=== PATIENT | female | born 1950 | race Caucasian/White ===

== ENCOUNTER 2016-12-11 15:24 | Emergency (ER) | payer MEDICARE, BC ==
[2016-12-11] MEDS ORDERED: ONDANSETRON HCL 4 MG/2 ML VIAL ONE (15:57)
[2016-12-11] MEDS ORDERED: ACETAMINOPHEN 325 MG TABLET PO ONE (16:27)
[2016-12-11 16:43] LABS: MONOCYTES# 0.6 X 10^3uL (0.2-1.0)
[2016-12-11 16:48] LABS: ALBUMIN 3.8 g/dL (3.5-5.0); ALKALINE PHOSPHATASE 76 U/L (38-126); ALT 43 U/L (9-52); AST 44 U/L (14-36); BILIRUBIN, DIRECT 0.8 mg/dL (0.0-0.4); BILIRUBIN, TOTAL 3.7 mg/dL (0.2-1.3); BLOOD UREA NITROGEN 9 mg/dL (7-17); CALCIUM 9.2 mg/dL (8.4-10.2); CHLORIDE 100 mmol/L (98-107); CREATININE 0.7 mg/dL (0.5-1.0); EST GLOMERULAR FILTRATION RATE > 60 mL/min; LIPASE 85 U/L (23-300); SODIUM 135 mmol/L (137-145); TOTAL PROTEIN 7.2 g/dL (6.3-8.2)
[2016-12-11 16:50] LABS: BASOPHILS 0.4 % (0.0-2.0); EOSINOPHILS 0.6 % (0.0-6.0); EOSINOPHILS# 0.1 X 10^3uL (0.0-0.4); GLUCOSE 201 mg/dL (70-100); HEMATOCRIT 42.7 % (36.0-48.0); HEMOGLOBIN 14.8 g/dL (12.0-16.0); LYMPHOCYTES 8.8 % (20.0-40.0); LYMPHOCYTES# 0.7 X 10^3uL (0.8-3.8); MEAN CELL VOLUME 86.2 fL (80.0-100.0); MEAN CORPUS. HGB CONCENTRATION 34.6 g/dL (32.0-36.0); MEAN CORPUSCULAR HEMOGLOBIN 29.8 pg (29.0-35.0); MONOCYTES 7.2 % (2.0-10.0); NEUTROPHILS# 7.1 X 10^3uL (2.6-6.7); PLATELET COUNT 101 X 10^3uL (130-440); RED BLOOD COUNT 4.95 X 10^6uL (4.20-6.10); RED CELL DISTRIBUTION WIDTH 12.5 % (11.5-14.5); WHITE BLOOD COUNT 8.5 X 10^3uL (3.9-10.7)
[2016-12-11] MEDS ORDERED: KETOROLAC TROMETHAMINE 30 MG/ML VIAL ONE (17:05)
--- NOTE | 2016-12-11 19:28 | ER NURSING DOCUMENTATION ---
Nurse's Notes [facility] Name:Macarena Keys Age:66 yrs Sex:Female :1950 Arrival Date:12/11/2016 Time:15:24 Bed1 Private MD: Diagnosis:Fever Presentation: 12/11 15:32 Notified ED Physician of patient's arrival and CC Denis Nielsen notified. sj 15:32 Acuity: STUART 3 sj 15:44 Presenting complaint: Patient states: Fever today of 103. Nausea and vomiting x5. sj Having right hip, right knee, and right ankle pain. 16:19 Transition of care: Home. sj 16:19 Method Of Arrival: Private Vehicle sj Triage Assessment: 16:29 General: Appears uncomfortable, Behavior is cooperative, drowsy, pleasant. Pain: sj Complains of pain in right ankle, right knee, right hip Pain currently is 8 out of 10 on a pain scale. Neuro: Level of Consciousness is awake, Oriented to person, place, time, event. Cardiovascular: Capillary refill < 3 seconds. Respiratory: Respiratory effort is even, unlabored, Respiratory pattern is regular. Derm: Skin is intact, Skin is dry, Skin is pale, Skin temperature is hot. Historical: - Home Meds: 1. Aspirin Oral 2 tabs at 1400 today 2. anastrozole 1 mg oral tab 1 tab once daily 3. cyclobenzaprine 10 mg oral tab prn 4. Allergy Medication oral as needed 5. Anti-Diarrheal (loperamide) 2 mg oral tab as needed 6. fluoxetine 20 mg oral cap 1 cap once daily 7. gabapentin 300 mg oral cap 1 cap as directed 8. glimepiride 4 mg oral tab 1 tab once daily 9. Vicodin ES Oral as needed for pain not to exceed 5 tablets in 24hrs 10. hydroxyzine HCl 25 mg oral tab 11. levothyroxine 25 mcg oral tab 1 tab once daily 12. Ativan 0.5 mg oral tab 13. metformin 1,000 mg oral tab 14. calcium carbonate 600 mg (1,500 mg) oral tab 15. Vitamin D Oral 16. Vitamin B-12 1,000 mcg oral tab 17. novofine 18. omeprazole 20 mg oral cpDR 19. simvastatin 40 mg oral tab - PMHx: DIABETES - NIDDM; hypercholesterolemia; GERD; HYPOTHYROIDISM; CIRRHOSIS; breast cancer (Unknown - 2009); - PSHx: LUMPECTOMY; CARPAL TUNNEL REPAIR; CHOLECYSECTOMY; - Tetanus: < 10 years. - Ebola Screening: : Patient negative for fever greater than or equal to 101.5 degrees Fahrenheit, and additional compatible Ebola Virus Disease symptoms. Patient denies exposure to infectious person. Patient denies travel to an Ebola-affected area in the 21 days before illness onset. No symptoms or risks identified at this time. . - Immunization history: Pneumococcal vaccine is up to date, Flu Vaccine < 1 year. - Social history: Smoking status: Patient states was never smoker of tobacco. Patient uses alcohol but reports only rare drinking. Screenin:32 Infectious Disease Risk None. Abuse screen: Denies threats or abuse. Denies injuries sj from another. Nutritional screening: On diabetic diet. Assessment: 18:55 Reassessment: Fever recurring. Unable to obtain urine specimen because dropped cup in sj toilet. Sent home with specimen cup.. 18:56 Respiratory: Respiratory effort is even, unlabored, Respiratory pattern is regular, sj Breath sounds are clear bilaterally. Derm: Skin is intact, Skin is dry, Skin is pale, Skin temperature is hot. Vital Signs: 15:42 BP 155 / 86; Pulse 111; Resp 16; Temp 103.0(O); Pulse Ox 89% on R/A; Weight 88.45 kg; sj Height 5 ft. 2 in. (157.48 cm); Pain 8/10; 17:10 BP 157 / 87; Pulse 111; Pulse Ox 95% on 2 lpm NC; sj 17:33 BP 152 / 70; Pulse 125; Resp 24; Temp 99.0; Pulse Ox 94% ; Pain 5/10; sj 18:13 BP 145 / 71; Pulse 115; Pulse Ox 95% on R/A; sj 19:26 Pulse 115; Temp 100.0; Pain 5/10; sj 15:42 Body Mass Index 35.67 (88.45 kg, 157.48 cm) ED Course: 15:25 Patient arrived in ED. em3 15:32 Nicol Maciel is Primary Nurse. sj 15:32 Triage completed. sj 15:41 Raoul Barrios MD is Attending Physician. jm 16:07 Port Xray Completed. hz 16:11 CHEST; SINGLE VIEW 73715 In Process Unspecified. EDMS 16:15 Inserted peripheral IV: 20 gauge in right forearm and blood collected. sj 16:15 First set of blood cultures drawn by nh. Oxygen Oxygen administration via nasal cannula sj @ 2L/min. 16:32 Valuables Given to family. Patient has correct armband on for positive identification. sj Bed in low position. Call light in reach. Side rails up X 1. 16:40 Pulse ox on. NIBP on. sj Administered Medications: 16:15 Drug: NS 0.9% 2000 ml; Route: IV; Rate: bolus; Site: right forearm; sj 17:08 Follow up: IV Status: Completed infusion; IV Intake: 1000ml sj 16:17 Drug: Zofran 4 mg; Route: IVP; Infused Over: 2 mins; Site: right forearm; sj 17:09 Follow up: Response: Nausea is decreased sj 16:30 Drug: Acetaminophen 975 mg; Route: PO; sj 17:54 Follow up: Response: Temperature is unchanged sj 17:00 Drug: Toradol 30 mg; Route: IVP; Site: right forearm; sj 17:54 Follow up: Response: Pain is decreased sj 17:54 Follow up: Response: Temperature is decreased sj 17:32 Drug: NS 0.9% 1000 ml; Route: IV; Rate: bolus; Site: right forearm; sj 18:57 Follow up: IV Status: Completed infusion; IV Intake: 1000ml sj Intake: 17:08 IV: 1000ml; Total: 1000ml. sj 18:57 IV: 1000ml; Total: 2000ml. Outcome: 18:37 Discharge ordered by . saw 18:54 Discharged to home ambulatory, with family. 18:54 Condition: good 18:54 Instructed on discharge instructions, follow up and referral plans. Incentive Spirometer medication usage, Demonstrated understanding of instructions, medications. 18:54 IV D/Rupesh 19:27 Patient left the ED. Signatures: Dispatcher [employer] EDMS Raoul Barrios MD MD jm Meiklejohn, Eric em3 Janzen, Sarah sj Zolnowski, Heather hz
--- NOTE | 2016-12-11 19:28 | ER PHYSICIAN DOCUMENTATION ---
Physician Documentation [facility] Name:Macarena Keys Age:66 yrs Sex:Female :1950 Arrival Date:12/11/2016 Time:15:24 Bed1 Private MD: Raoul Shah Disposition: 12/11/16 18:37 Discharged to Home/Self Care. Impression: Fever. - Condition is Good. - Discharge Instructions: FEBRILE ILLNESS, Uncertain Cause (Adult). - Medical Reconciliation form form. - Follow up: Emergency Department; When: 1 - 2 days; Reason: Continuance of care. - Problem is new. - Symptoms have improved. - Notes: Return your urine for us. HPI: 12/11 16:41 This 66 yrs old Female presents to ER via Private Vehicle with complaints of jm Fever. 16:41 The patient reports fever, that was measured at 103 degrees Fahrenheit. Onset: The jm symptom(s)/episode began/occurred today. Modifying factors: there are no obvious modifying factors. Associated signs and symptoms: Pertinent positives: headache, myalgias, sore throat, Pertinent negatives: abdominal pain, backache, chills, cough. Severity of symptoms: in the emergency department the symptoms are unchanged. The patient has not experienced similar symptoms in the past. The patient has not recently seen a physician. Daughter had confirmed strep last week. Pt does have some URI sx, but no cough. . Historical: - Home Meds: 1. Aspirin Oral 2 tabs at 1400 today 2. anastrozole 1 mg oral tab 1 tab once daily 3. cyclobenzaprine 10 mg oral tab prn 4. Allergy Medication oral as needed 5. Anti-Diarrheal (loperamide) 2 mg oral tab as needed 6. fluoxetine 20 mg oral cap 1 cap once daily 7. gabapentin 300 mg oral cap 1 cap as directed 8. glimepiride 4 mg oral tab 1 tab once daily 9. Vicodin ES Oral as needed for pain not to exceed 5 tablets in 24hrs 10. hydroxyzine HCl 25 mg oral tab 11. levothyroxine 25 mcg oral tab 1 tab once daily 12. Ativan 0.5 mg oral tab 13. metformin 1,000 mg oral tab 14. calcium carbonate 600 mg (1,500 mg) oral tab 15. Vitamin D Oral 16. Vitamin B-12 1,000 mcg oral tab 17. novofine 18. omeprazole 20 mg oral cpDR 19. simvastatin 40 mg oral tab - PMHx: DIABETES - NIDDM; hypercholesterolemia; GERD; HYPOTHYROIDISM; CIRRHOSIS; breast cancer (Unknown - 2010); - PSHx: LUMPECTOMY; CARPAL TUNNEL REPAIR; CHOLECYSECTOMY; - Tetanus: < 10 years. - Ebola Screening: : Patient negative for fever greater than or equal to 101.5 degrees Fahrenheit, and additional compatible Ebola Virus Disease symptoms. Patient denies exposure to infectious person. Patient denies travel to an Ebola-affected area in the 21 days before illness onset. No symptoms or risks identified at this time. . - Immunization history: Pneumococcal vaccine is up to date, Flu Vaccine < 1 year. - Social history: Smoking status: Patient states was never smoker of tobacco. Patient uses alcohol but reports only rare drinking. ROS: 16:46 Constitutional: Positive for body aches, fever. jm 16:46 ENT: Positive for sinus congestion, sore throat. 16:46 Neck: Negative for pain with movement, tenderness. 16:46 Cardiovascular: Negative for chest pain. 16:46 Respiratory: Negative for cough. 16:46 Abdomen/GI: Positive for vomiting, Negative for abdominal pain, nausea, diarrhea. 16:46 Back: Negative for pain at rest, pain with movement. 16:46 : Negative for urinary symptoms. 16:46 MS/extremity: Positive for tenderness, of the pelvis. 16:46 Skin: Negative for rash. 16:46 Neuro: Positive for headache, Negative for dizziness. 16:46 All other systems are negative. Exam: 16:50 Constitutional: The patient appears alert, awake, comfortable, obese. jm 16:50 Eyes: Periorbital structures: appear normal, Conjunctiva: normal. 16:50 ENT: Mouth: Oral mucosa: normal, Posterior pharynx: Uvula: normal, erythema, that is marked, exudate, that is mild. 16:50 Neck: Thyroid: no acute changes, Trachea: is midline with no obvious abnormalities. 16:50 Cardiovascular: Rate: tachycardic, Rhythm: regular. 16:50 Respiratory: the patient does not display signs of respiratory distress, Breath sounds: are normal. 16:50 Abdomen/GI: Bowel sounds: normal, Palpation: abdomen is soft and non-tender. 16:50 : CVA tenderness, is absent, Bladder: is normal. 16:50 Musculoskeletal/extremity: Circulation is intact in all extremities. Calves: are non-tender, have equal circumference. 16:50 Skin: Appearance: Color: pink, Temperature: warm, no rash present. 16:50 Neuro: Mentation: is normal, Memory: is normal. 16:50 Psych: Behavior/mood is pleasant, cooperative, Affect is calm. Vital Signs: 15:42 BP 155 / 86; Pulse 111; Resp 16; Temp 103.0(O); Pulse Ox 89% on R/A; Weight 88.45 kg; sj Height 5 ft. 2 in. (157.48 cm); Pain 8/10; 17:10 BP 157 / 87; Pulse 111; Pulse Ox 95% on 2 lpm NC; sj 17:33 BP 152 / 70; Pulse 125; Resp 24; Temp 99.0; Pulse Ox 94% ; Pain 5/10; sj 18:13 BP 145 / 71; Pulse 115; Pulse Ox 95% on R/A; sj 19:26 Pulse 115; Temp 100.0; Pain 5/10; sj 15:42 Body Mass Index 35.67 (88.45 kg, 157.48 cm) MDM: 15:28 Patient medically screened. 20:45 Differential diagnosis: viral Infection, bacterial infection, URI, UTI. Data reviewed: vital signs, nurses notes, lab test result(s), radiologic studies, and as a result, I will discharge patient. Test interpretation: by ED physician or midlevel provider: plain radiologic studies. Counseling: I had a detailed discussion with the patient and/or guardian regarding: the historical points, exam findings, and any diagnostic results supporting the discharge/admit diagnosis, lab results, radiology results, the need for outpatient follow up, with the patient's primary care provider. Medication response: The patient's symptoms have improved, Toradol markedly relieved the patient's pain, acetaminophen administration has lowered the patient's temperature. ED course: I could not get a UA on pt. We waited 2 hours for one after 2LNS. Pt finally had to go but dropped the specimen in the toilet and urinated around it. Pt felt much better and wished to leave. I told her that I do not have a specific dx except for a viral syndrome (fever, body aches, mild HOUSE). Pt will return to ER if things worsen and to drop off her UA. . 12/11 16:51 Order name: BASIC METABOLIC PANEL; Complete Time: 17:09 [facility] 12/11 16:51 Order name: HEPATIC PANEL; Complete Time: 17:09 [facility] 12/11 16:51 Order name: LIPASE; Complete Time: 17:09 [facility] 12/11 16:52 Order name: LACTATE; Complete Time: 16:52 [facility] 12/11 16:55 Order name: CBC AUTO DIF, MDIF/RMOR IF IND; Complete Time: 17:09 [facility] 12/11 16:56 Order name: RAPID STREP SCRN CUL IF NEG EDSC 12/12 09:47 Order name: BLOOD CULTURE [facility] 12/12 09:50 Order name: BLOOD CULTURE [facility] 12/12 17:23 Order name: THROAT FOR BETA STREP [facility] 12/11 16:11 Order name: CHEST; SINGLE VIEW [id number] [facility] 12/12 09:11 Order name: CHEST; SINGLE [place]IEW [id number] [facility] 12/11 15:54 Order name: I & O; Complete Time: 16:36 12/11 15:54 Order name: NPO; Complete Time: 16:36 12/11 15:54 Order name: Oxygen; Complete Time: 16:36 12/11 15:54 Order name: Place Patient On Monitor; Complete Time: 16:36 12/11 15:54 Order name: Pulse Ox Continuous; Complete Time: 16:36 12/11 17:29 Order name: PO Challenge; Complete Time: 17:33 Dispensed Medications: 16:15 Drug: NS 0.9% 2000 ml; Route: IV; Rate: bolus; Site: right forearm; sj 17:08 Follow up: IV Status: Completed infusion; IV Intake: 1000ml sj 16:17 Drug: Zofran 4 mg; Route: IVP; Infused Over: 2 mins; Site: right forearm; sj 17:09 Follow up: Response: Nausea is decreased sj 16:30 Drug: Acetaminophen 975 mg; Route: PO; sj 17:54 Follow up: Response: Temperature is unchanged sj 17:00 Drug: Toradol 30 mg; Route: IVP; Site: right forearm; sj 17:54 Follow up: Response: Pain is decreased sj 17:54 Follow up: Response: Temperature is decreased sj 17:32 Drug: NS 0.9% 1000 ml; Route: IV; Rate: bolus; Site: right forearm; sj 18:57 Follow up: IV Status: Completed infusion; IV Intake: 1000ml Signatures: Raoul Barrios MD MD jm Janzen, Sarah sj
--- NOTE | 2016-12-12 09:10 | RADIOLOGY REPORT ---
HISTORY: Fever. COMPARISON: None. FINDINGS: 1 view of the chest was performed. The lungs are normally inflated. There is patchy left basilar airspace opacification, which may refle ct subsegmental atelectasis or pneumonia. The right lung is clear. There is no evidence of pulmonary edema. There is evidence of pleural effusion or pneumothorax. The heart is not enlarged. The bones appear unremarkable IMPRESSION: Patchy left basilar airspace opacification may reflect subsegmental atelectasis or pneumonia. The ext ent of the abnormality would be more fully characterized with PA and lateral radiographs. Final Electronic Signature: This report was electronically signed by Erlin Nash MD on 12/13/19 17 9:07 AM. [email or web address] /
== END 2016-12-11 19:28 | disposition home or self-care (01) ==
LOC: ER 15:24
DX: R50.9 Fever, unspecified (principal); R11.2 Nausea with vomiting, unspecified; M79.1 Myalgia; J02.0 Streptococcal pharyngitis; R51 Headache; E11.65 Type 2 diabetes mellitus with hyperglycemia; Z79.82 Long term (current) use of aspirin; Z79.899 Other long term (current) drug therapy
CPT/HCPCS: 36415; 71010; 80048; 80076; 83605; 83690; 85025; 86403; 87040; 87081; 87186; 87449; 87880; 96361; 96374; 96375; 99284; 99285; J1885; J2405

== ENCOUNTER 2016-12-12 06:15 | Inpatient (IN) | payer MEDICARE, BC ==
[2016-12-12 06:59] LABS: URINE MUCUS NONE SEEN (Up to 25%)
[2016-12-12 07:11] LABS: ALBUMIN 3.1 g/dL (3.5-5.0); ALKALINE PHOSPHATASE 55 U/L (38-126); ALT 39 U/L (9-52); AST 44 U/L (14-36); BILIRUBIN, DIRECT 0.9 mg/dL (0.0-0.4); BILIRUBIN, TOTAL 3.4 mg/dL (0.2-1.3); BLOOD UREA NITROGEN 10 mg/dL (7-17); CALCIUM 8.5 mg/dL (8.4-10.2); CHLORIDE 103 mmol/L (98-107); CREATININE 0.7 mg/dL (0.5-1.0); EST GLOMERULAR FILTRATION RATE > 60 mL/min; LIPASE 48 U/L (23-300); POTASSIUM 3.7 mmol/L (3.5-5.1); SODIUM 135 mmol/L (137-145); TOTAL PROTEIN 6.1 g/dL (6.3-8.2)
[2016-12-12 07:14] LABS: GLUCOSE 276 mg/dL (70-100)
[2016-12-12] MEDS ORDERED: NORMAL SALINE 500 ML IV ONE (07:22)
[2016-12-12] MEDS ORDERED: VANCOMYCIN HCL 1,000 MG/20 ML VIAL ONE (07:22)
[2016-12-12 07:23] LABS: HEMATOCRIT 37.9 % (36.0-48.0); MEAN CELL VOLUME 86.5 fL (80.0-100.0); MEAN CORPUS. HGB CONCENTRATION 34.3 g/dL (32.0-36.0); MEAN CORPUSCULAR HEMOGLOBIN 29.7 pg (29.0-35.0); MEAN PLATELET VOLUME 8.4 fL (7.4-10.4); PLATELET COUNT 93 X 10^3uL (130-440); RED BLOOD COUNT 4.38 X 10^6uL (4.20-6.10); RED CELL DISTRIBUTION WIDTH 12.6 % (11.5-14.5); WHITE BLOOD COUNT 6.1 X 10^3uL (3.9-10.7)
[2016-12-12] MEDS ORDERED: WATER FOR INJECTION 10 ML ONE (07:23)
[2016-12-12 07:24] LABS: TOXIC GRANULATION PRESENT
[2016-12-12 07:25] LABS: BAND% (Manual) 21 % (0.0-1.0); LYMPHOCYTE % (Manual) 12 % (20.0-40.0); MONOCYTE % (Manual) 5 % (2.0-10.0); NEUTROPHIL % (Manual) 62 % (54.0-75.0)
[2016-12-12 07:26] LABS: PLATELET ESTIMATE DECREASED
[2016-12-12] MEDS ORDERED: KETOROLAC TROMETHAMINE 30 MG/ML VIAL ONE (07:54)
[2016-12-12 08:13] LABS: URINE APPEARANCE CLEAR; URINE BACTERIA NONE SEEN (<10/hpf); URINE BILIRUBIN NEGATIVE (NEGATIVE); URINE BLOOD TRACE (NEGATIVE); URINE COLOR YELLOW; URINE GLUCOSE NORMAL (NEGATIVE); URINE KETONE NEGATIVE (NEGATIVE); URINE NITRITE NEGATIVE (NEGATIVE); URINE PH 5.5 (5-7); URINE PROTEIN NEGATIVE (NEG - TRACE); URINE RBC 0-5/hpf (0-5/hpf); URINE SPECIFIC GRAVITY < or = 1.005 (0.001-1.035); URINE SQUAMOUS EPITHELIAL CELL 0-5/hpf (<= 15/hpf); URINE UROBILINOGEN NORMAL (NEG-1mg/dL); URINE WBC 0-4/hpf (0-4/hpf)
[2016-12-12 08:16] LABS: URINE LEUKOCYTE ESTERASE TRACE (NEGATIVE)
[2016-12-12] MEDS ORDERED: ZOLPIDEM TARTRATE 5 MG TABLET PO PRN (09:05)
[2016-12-12] MEDS ORDERED: MAG-AL PLUS XS SUSP 30 ML UDC PO PRN (09:05)
[2016-12-12] MEDS ORDERED: HOME MEDICATION LIST NEEDED 1 EA EACH MC ONE (09:05)
[2016-12-12] MEDS ORDERED: POLYETHYLENE GLYCOL 3350 17 GM POWD.PACK PO PRN (09:05)
--- NOTE | 2016-12-12 09:09 | ER NURSING DOCUMENTATION ---
Nurse's Notes [facility] Name:Macarena Keys Age:66 yrs Sex:Female :1950 Arrival Date:12/12/2016 Time:06:15 Bed1 Private MD: Diagnosis:Sepsis;Dehydration;Septicemia Streptococcal Presentation: 12/12 06:44 Presenting complaint: Patient states: Seen yesterday for fever and URI. States not 4 getting better and now has " rash on forehead ". Transition of care: Home. Notified ED Physician of Denis Nielsen notified. 06:44 Method [facility] 06:44 Acuity: [facility] Triage Assessment: 06:55 General: Appears distressed, Behavior is cooperative. Pain: Complains of pain in [facility] forehead, right christianity, left christianity, right jaw and left jaw. EENT: No deficits noted. Neuro: No deficits noted. Cardiovascular: Chest pain is denied. Respiratory: Airway is patent Breath sounds are diminished bilaterally. Reports shortness of breath Currently has URI. GI: No deficits noted. : No deficits noted. Derm: Rash noted that is on forehead, right christianity and left christianity. Musculoskeletal: No deficits noted. Historical: - Allergies: Tape; - Home Meds: 1. Aspirin Oral 2 tabs at 1400 today 2. anastrozole 1 mg oral tab 1 tab once daily 3. cyclobenzaprine 10 mg oral tab prn 4. Allergy Medication oral as needed 5. Anti-Diarrheal (loperamide) 2 mg oral tab as needed 6. fluoxetine 20 mg oral cap 1 cap once daily 7. gabapentin 300 mg oral cap 1 cap as directed 8. glimepiride 4 mg oral tab 1 tab once daily 9. Vicodin ES Oral as needed for pain not to exceed 5 tablets in 24hrs 10. hydroxyzine HCl 25 mg oral tab 11. levothyroxine 25 mcg oral tab 1 tab once daily 12. Ativan 0.5 mg oral tab 13. metformin 1,000 mg oral tab 14. calcium carbonate 600 mg (1,500 mg) oral tab 15. Vitamin D Oral 16. Vitamin B-12 1,000 mcg oral tab 17. novofine 18. omeprazole 20 mg oral cpDR 19. simvastatin 40 mg oral tab - PMHx: DIABETES - NIDDM; GERD; HYPOTHYROIDISM; CIRRHOSIS; hypercholesterolemia; - PSHx: LUMPECTOMY; CARPAL TUNNEL REPAIR; CHOLECYSECTOMY; - Tetanus: < 10 years. - Ebola Screening: : No symptoms or risks identified at this time. . - Immunization history: Flu Vaccine < 1 year. - Social history: Smoking status: Patient states was never smoker of tobacco. Screenin:27 Infectious Disease Risk None. Abuse screen: Denies injuries from another. Nutritional mk4 screening: No deficits noted. Assessment: 07:26 See Triage Assessment done by same RN. mk4 08:42 Cardiovascular: Rhythm is sinus rhythm. cb 08:45 Respiratory: Respiratory effort is even, unlabored. cb Vital Signs: 07:15 BP 153 / 76; Pulse 89; Resp 16; Temp 100.7; Pulse Ox 88% on R/A; Weight 70.31 kg; mk4 Height 5 ft. 1 in. (154.94 cm); Pain 8/10; 07:31 Pain 8/10; cb 07:45 Temp 98.7(O); cb 08:35 BP 115 / 52 (auto/); cb 08:37 Pulse 95 MON; Resp 26; Pulse Ox 96% ; cb 08:57 Pulse 86 MON; Resp 18; Pulse Ox 96% ; cb 08:57 BP 126 / 64 (auto/); cb 08:57 BP 126 / 64; Pulse 93; Resp 22; Pulse Ox 97% 2 lpm ; cb 07:15 Body Mass Index 29.29 (70.31 kg, 154.94 cm) mk4 ED Course: 06:16 Patient arrived in ED. ma1 06:42 Raoul Barrios MD is Attending Physician. jm 06:43 Silva Thompson is Primary Nurse. mk4 06:47 Triage completed. mk4 06:50 Inserted peripheral IV: saline lock: 20 gauge in left antecubital area and blood jt collected. 07:15 Diet: Patient given water. cb 07:20 Arm band placed on Bed in low position Call Light in Reach Side rails up x2. Family mk4 accompanied patient. Labs ordered per protocol. Drawn by ED staff. Urine obtained. 07:27 Valuables Remains with patient. Pulse Ox - RN Monitoring Only NIBP On - RN Monitoring mk4 Only. Door closed. Noise minimized. PO fluids given. Verbal reassurance given. Warm blanket given. Pillow given. 07:43 Livia Law MD is Admitting Physician. jm 08:45 Assisted to bathroom. cb Administered Medications: 07:19 Drug: NS 0.9% 2000 ml; Volume: 1000 ml; Route: IV; Rate: bolus; Infused Over: 45 mins; mk4 Site: right antecubital; Delivery: [place]; 09:32 Follow up: IV Status: Infusion continued upon admission; IV Intake: 1500ml cb 07:19 Drug: vancomycin 1 grams; Volume: 250 ml; Route: IVPB; Rate: 125 ml/hr; Infused Over: 2 mk4 hrs; Site: left antecubital; Delivery: Pump; 09:32 Follow up: IV Status: Infusion continued upon admission; IV Intake: 250ml cb 07:45 Drug: Toradol 30 mg; Route: IVP; Rate: 30 bolus; Infused Over: 2 mins; Site: left mk4 antecubital; :33 Follow up: Response: No adverse reaction cb Intake: 08:45 PO: 50ml (Water); IV: 1750ml; Total: 1800ml. cb 09:32 IV: 1500ml; Total: 3300ml. cb 09:32 IV: 250ml; Total: 3550ml. cb Output: 08:45 Urine: 550ml (Voided); Total: 550ml. cb Outcome: 07:44 Decision to Admit by Provider. 09:05 Admitted to Med/surg accompanied by nurse, family with patient, via stretcher, with cb oxygen, with chart. 09:05 Condition: stable 09:05 Report given to FRANCO Grace 09:05 Discharge instructions given to patient, Instructed on need to admit Demonstrated understanding of instructions. 09:08 Patient left the ED. cb Signatures: Megan Douglass, RN RN Raoul Engel MD MD jm King, Silva 4 Cyndie Worthy Melissa [facility]
--- NOTE | 2016-12-12 09:09 | ER PHYSICIAN DOCUMENTATION ---
Physician Documentation [facility] Name:Macarena Keys Age:66 yrs Sex:Female :1950 Arrival Date:12/12/2016 Time:06:15 Bed1 Private MD: Raoul Shah Disposition: 12/12/16 07:44 Admit ordered for Livia Law. Preliminary diagnosis are Sepsis, Dehydration, Septicemia Streptococcal. - Bed requested for Medical/Surgical. - Condition is Fair. - Problem is an ongoing problem. - Symptoms have worsened. 23 HR OBS Yes HPI: 12/12 07:04 This 66 yrs old Female presents to ER via Walk In with complaints of Fever, jm Rash - FOREHEAD, Ear Pain, Sore Throat. 07:04 The patient reports fever, that was measured at 102 degrees Fahrenheit. Onset: The jm symptom(s)/episode began/occurred yesterday, and became persistent today. Modifying factors: there are no obvious modifying factors. Associated signs and symptoms: Pertinent positives: URI sx (sore throat, mild cough, mild HOUSE). . Severity of symptoms: in the emergency department the symptoms are unchanged. The patient has not experienced similar symptoms in the past. The patient has been recently seen at the [facility] Emergency Department, yesterday, for similar complaints labs were performed, X-rays were performed, was given IV fluids, the patient was told to return for a recheck. Pt came back as her fever continued and now she has a rash. she was walking in the door, lab came to tell us that her blood cultures from yesterday were, "very positive".. Historical: - Allergies: Tape; - Home Meds: 1. Aspirin Oral 2 tabs at 1400 today 2. anastrozole 1 mg oral tab 1 tab once daily 3. cyclobenzaprine 10 mg oral tab prn 4. Allergy Medication oral as needed 5. Anti-Diarrheal (loperamide) 2 mg oral tab as needed 6. fluoxetine 20 mg oral cap 1 cap once daily 7. gabapentin 300 mg oral cap 1 cap as directed 8. glimepiride 4 mg oral tab 1 tab once daily 9. Vicodin ES Oral as needed for pain not to exceed 5 tablets in 24hrs 10. hydroxyzine HCl 25 mg oral tab 11. levothyroxine 25 mcg oral tab 1 tab once daily 12. Ativan 0.5 mg oral tab 13. metformin 1,000 mg oral tab 14. calcium carbonate 600 mg (1,500 mg) oral tab 15. Vitamin D Oral 16. Vitamin B-12 1,000 mcg oral tab 17. novofine 18. omeprazole 20 mg oral cpDR 19. simvastatin 40 mg oral tab - PMHx: DIABETES - NIDDM; GERD; HYPOTHYROIDISM; CIRRHOSIS; hypercholesterolemia; - PSHx: LUMPECTOMY; CARPAL TUNNEL REPAIR; CHOLECYSECTOMY; - Tetanus: < 10 years. - Ebola Screening: : No symptoms or risks identified at this time. . - Immunization history: Flu Vaccine < 1 year. - Social history: Smoking status: Patient states was never smoker of tobacco. ROS: 07:18 Constitutional: Positive for body aches, chills, fatigue, fever. jm 07:18 ENT: Positive for rhinorrhea, sinus congestion, sore throat, Negative for 07:18 Neck: Positive for swollen nodes, Negative for pain with movement, pain at rest. 07:18 Cardiovascular: Negative for chest pain, palpitations. 07:18 Respiratory: Negative for cough, shortness of breath. 07:18 Abdomen/GI: Negative for abdominal pain, nausea, vomiting, diarrhea. 07:18 Back: Negative for injury or acute deformity. 07:18 MS/extremity: Negative for rash, swelling. 07:18 Skin: Positive for rash. 07:18 Neuro: Negative for dizziness, headache, near syncope. 07:18 Psych: Negative for drug dependence, alcohol dependence. 07:18 All other systems are negative. Exam: 07:19 Constitutional: The patient appears in no acute distress, alert, awake, comfortable, jm obese. 07:19 Head/face: Noted is rash, looks like cellulitis. . 07:19 Eyes: Periorbital structures: appear normal, Extraocular movements: intact throughout. 07:19 Neck: Thyroid: appears normal, ROM/movement: is normal. 07:19 Cardiovascular: Rate: normal, Rhythm: regular. 07:19 Respiratory: Respirations: normal, Breath sounds: are normal. 07:19 Abdomen/GI: Bowel sounds: normal, Palpation: abdomen is soft and non-tender. 07:19 Musculoskeletal/extremity: ROM: intact in all extremities, Circulation is intact in all extremities. 07:19 Skin: Appearance: Color: pink, cellulitis, that is severe, well demarcated, entire foread to the back of her scalp. , rash a severe rash is noted. 07:19 Neuro: Mentation: is normal, Memory: is normal. 07:19 Psych: Behavior/mood is pleasant, cooperative, Affect is calm. Vital Signs: 07:15 BP 153 / 76; Pulse 89; Resp 16; Temp 100.7; Pulse Ox 88% on R/A; Weight 70.31 kg; mk4 Height 5 ft. 1 in. (154.94 cm); Pain 8/10; 07:31 Pain 8/10; cb 07:45 Temp 98.7(O); cb 08:35 BP 115 / 52 (auto/); cb 08:37 Pulse 95 MON; Resp 26; Pulse Ox 96% ; cb 08:57 Pulse 86 MON; Resp 18; Pulse Ox 96% ; cb 08:57 BP 126 / 64 (auto/); cb 08:57 BP 126 / 64; Pulse 93; Resp 22; Pulse Ox 97% 2 lpm ; cb 07:15 Body Mass Index 29.29 (70.31 kg, 154.94 cm) mk4 MDM: 06:42 Patient medically screened. 12/12 07:15 Order name: BASIC METABOLIC PANEL; Complete Time: 07:42 EDMS 12/12 07:15 Order name: HEPATIC PANEL; Complete Time: 07:42 EDMS 12/12 07:15 Order name: LIPASE; Complete Time: 07:42 EDMS 12/12 07:17 Order name: LACTATE; Complete Time: 07:22 EDMS 12/12 07:22 Interpretation: Abnormal: LACTATE 4.0. 12/12 07:24 Order name: CBC W/ MANUAL DIFFERENTIAL; Complete Time: 07:29 EDMS 12/12 08:14 Order name: UA W/ MICRO -CULTURE IF IND; Complete Time: 08:24 EDMS 12/13 06:48 Order name: BASIC METABOLIC PANEL EDWY 12/13 06:48 Order name: HEPATIC PANEL EDWY 12/13 07:29 Order name: CBC W/ MANUAL DIFFERENTIAL EDMS 12/13 07:54 Order name: URINE CULTURE EDMS 12/13 21:49 Order name: VANCOMYCIN TROUGH EDMS 12/12 06:44 Order name: I & O; Complete Time: 07:46 12/12 06:44 Order name: NPO; Complete Time: 07:46 12/12 06:44 Order name: Oxygen; Complete Time: 07:46 12/12 06:44 Order name: Place Patient On Monitor; Complete Time: 12/12 06:44 Order name: Pulse Ox Continuous; Complete Time: : Dispensed Medications: 07:19 Drug: NS 0.9% 2000 ml; Volume: 1000 ml; Route: IV; Rate: bolus; Infused Over: 45 mins; mk4 Site: right antecubital; Delivery: [place] Tubing; :32 Follow up: IV Status: Infusion continued upon admission; IV Intake: 1500ml cb 07:19 Drug: vancomycin 1 grams; Volume: 250 ml; Route: IVPB; Rate: 125 ml/hr; Infused Over: 2 mk4 hrs; Site: left antecubital; Delivery: Pump; :32 Follow up: IV Status: Infusion continued upon admission; IV Intake: 250ml cb 07:45 Drug: Toradol 30 mg; Route: IVP; Rate: 30 bolus; Infused Over: 2 mins; Site: left mk4 antecubital; 09:33 Follow up: Response: No adverse reaction cb Signatures: Megan Douglass, RN RN Raoul Engel MD MD jm King, [facility]
[2016-12-12] MEDS ORDERED: DEXTROSE 50% WATER 25 GM/50 ML SYR IV PRN (09:10)
[2016-12-12] MEDS ORDERED: VANCOMYCIN HCL 1,000 MG in NORMAL SALINE ADDVANTAGE 250 ML IV SCH (10:00)
[2016-12-12] MEDS ORDERED: LORazepam 0.5 MG TABLET PO PRN (10:26)
[2016-12-12] MEDS: HYDROcodone/APAP 5/325 MG 1 TAB TABLET PO PRN ×2 (11:37→14:29)
[2016-12-12] MEDS: metFORMIN 500 MG TABLET PO SCH ×2 (11:38→20:37)
[2016-12-12] MEDS: FLUOXETINE HCL 20 MG CAPSULE PO SCH (11:38)
[2016-12-12] MEDS: CHOLECALCIFEROL 1,000 UNIT CAPSULE PO SCH (11:38)
[2016-12-12] MEDS: GABAPENTIN 300 MG CAPSULE PO SCH ×2 (11:38→20:36)
[2016-12-12] MEDS: CYANOCOBALAMIN 1,000 MCG TABLET PO SCH (11:38)
[2016-12-12] MEDS: INSULIN LISPRO 100 UNIT/ML ML SUBCUT SCH ×3 (11:39→20:55)
[2016-12-12] MEDS: [UNRECOGNIZED DRUG - REMARK] PO SCH (11:40)
[2016-12-12] MEDS: NORMAL SALINE 1,000 ML IV SCH (11:41)
[2016-12-12] MEDS: [UNRECOGNIZED DRUG - REMARK] PO SCH ×2 (13:23→18:51)
[2016-12-12] MEDS: CYCLOBENZAPRINE HCL 10 MG TABLET PO PRN (13:24)
[2016-12-12] MEDS: IBUPROFEN 600 MG TABLET PO PRN (13:24)
[2016-12-12] MEDS: VANCOMYCIN HCL 1,000 MG in NORMAL SALINE ADDVANTAGE 250 ML IV SCH (20:35)
--- NOTE | 2016-12-12 21:06 | HISTORY & PHYSICAL ---
DATE OF ADMISSION: 12/12/16 ATTENDING PHYSICIAN: Livia Law MD HISTORY OF PRESENT ILLNESS: This 66-year-old lady visiting from [place] presented to the Emergency Room yesterday with a significant fever and elevated lactic acid but no source found. After some IV fluids and monitoring in the Emergency Room, she felt vastly improved and really preferred to be discharged and bring back a urine for culture later. However, she had 4/4 positive blood cultures this morning and coincidentally returned to the Emergency Room for recurrent fever. She has now developed a rather impressive rash covering the front of her scalp involving the right ear and coming down just over the eyebrows in front. Vancomycin was started in the Emergency Room. Vital signs are stable, she will be admitted for treatment of strep cellulitis. PAST MEDICAL HISTORY 1. Diabetes. 2. Hypertension. 3. Hyperlipidemia. 4. 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 5. Left breast cancer. PAST SURGICAL HISTORY (none of these recent). 1. Lumpectomy, left breast. 2. Carpal tunnel surgery, right wrist. 3. Removal of gallbladder. MEDICATIONS Aspirin. Anastrozole 1 mg tab daily. Cyclobenzaprine 10 mg p.o. q.6 hours PRN. Odyt-pjj-pjklinw allergy medication. Loperamide 2 mg p.o. t.i.d. PRN. Fluoxetine 20 mg 1 p.o. daily. Gabapentin 300 mg p.o. dosing interval not yet clarified. Glimepiride 4 mg 1 p.o. daily. [place] unknown dosing PRN. Hydroxyzine 25 mg p.o. at h.s. PRN. Levothyroxine 25 mcg 1 p.o. daily. Ativan 0.5 mg p.o. t.i.d. PRN. Metformin 1000 mg dosing interval not yet clarified. Calcium carbonate daily. Vitamin D daily. Vitamin B12 1000 mcg p.o. daily. Insulin dosing yet to be clarified. Omeprazole 20 mg p.o. daily. Simvastatin 40 mg p.o. daily. ALLERGIES: No known drug allergies. SOCIAL HISTORY: She does not smoke. She does not drink alcohol. She is traveling with her who is on hemodialysis and will be traveling to [place] for that tomorrow. They plan to stay in [place] for a month. REVIEW OF SYSTEMS: Patient has complained of fever, headache, sore throat, muscle aches in the last few days, and there is a known exposure to strep last week. PHYSICAL EXAMINATION VITAL SIGNS: 101 116/80 75 92% on 2L O2 GENERAL: Pleasant, very hard of hearing lady in no acute distress in the Emergency Room. HEENT: Her right ear is quite edematous such that the auditory canal is obstructed at this time. The erythema and swelling spreads across the anterior scalp and down her forehead, just barely sparing the eyebrows bilaterally. The eyes are not involved. There is no significant adenopathy. CARDIAC: Distant S1, S2. CHEST: Clear to auscultation. ABDOMEN: Obese, soft and nontender at this time. EXTREMITIES: Without edema. There are no skin changes or rashes noted in the lower extremities. LABORATORY DATA: From the Emergency Room include a sodium of 135, carbon dioxide of 21, glucose of 276, lactic acid of 4 (it was 3 yesterday), total bilirubin of 3.4, direct bilirubin 0.9, AST 44, ALT 39, alkaline phosphatase normal. Total protein is very mildly depressed. A CBC yesterday was fairly unremarkable, and today in fact she does not have a white count but there is a significant bandemia of 21% with 12% lymphocytes. Her urine does not look suspicious for infection. A group A rapid strep done yesterday was unremarkable , but apparently the lab is seeing some group A strep on her throat culture which was initiated at the same time. It looks like a flu test was initiated last evening but the results are not easily visible. It is unlikely to be positive since we have a good explanation for all of her troubles. ASSESSMENT AND PLAN 1. Streptococcal cellulitis of the scalp and right ear. Vancomycin was initiated in the Emergency Room and will be continued. The rash will be closely monitored as well as laboratory data to assure that this process is stabilizing and resolving. It is quite concerning that she had 4/4 positive blood cultures, but clinically she appears to be doing well with very acceptable vital signs in the Emergency Room. 2. Chronic medical issues. Her routine dosing of medication for blood pressure, lipids and especially diabetes will be discerned this morning and orders put in the chart. For now, there will be sliding scale insulin. MTDD
[2016-12-13] MEDS: NORMAL SALINE 1,000 ML IV SCH (02:55)
[2016-12-13] MEDS: IBUPROFEN 600 MG TABLET PO PRN ×2 (03:03→19:07)
[2016-12-13] MEDS ORDERED: NORMAL SALINE MINI-BAG+ 100 ML IV ONE (04:50)
[2016-12-13] MEDS: PANTOPRAZOLE 40 MG TABLET PO SCH (06:02)
[2016-12-13] MEDS: LEVOTHYROXINE 25 MCG TABLET PO SCH (06:02)
[2016-12-13 06:36] LABS: ALBUMIN 2.7 g/dL (3.5-5.0); ALKALINE PHOSPHATASE 59 U/L (38-126); ALT 51 U/L (9-52); AST 47 U/L (14-36); BILIRUBIN, DIRECT 1.2 mg/dL (0.0-0.4); BILIRUBIN, TOTAL 2.8 mg/dL (0.2-1.3); BLOOD UREA NITROGEN 9 mg/dL (7-17); CALCIUM 8.4 mg/dL (8.4-10.2); CHLORIDE 109 mmol/L (98-107); CREATININE 0.6 mg/dL (0.5-1.0); EST GLOMERULAR FILTRATION RATE > 60 mL/min; GLUCOSE 67 mg/dL (70-100); POTASSIUM 3.8 mmol/L (3.5-5.1); SODIUM 142 mmol/L (137-145); TOTAL PROTEIN 5.8 g/dL (6.3-8.2)
[2016-12-13 07:28] LABS: HEMATOCRIT 38.3 % (36.0-48.0); HEMOGLOBIN 12.4 g/dL (12.0-16.0); MEAN CELL VOLUME 86.7 fL (80.0-100.0); MEAN CORPUS. HGB CONCENTRATION 32.3 g/dL (32.0-36.0); MEAN PLATELET VOLUME 8.7 fL (7.4-10.4); PLATELET COUNT 81 X 10^3uL (130-440); RED BLOOD COUNT 4.42 X 10^6uL (4.20-6.10); RED CELL DISTRIBUTION WIDTH 12.9 % (11.5-14.5)
[2016-12-13 07:29] LABS: BAND% (Manual) 24 % (0.0-1.0); EOSINOPHIL % (Manual) 4 % (0.0-6.0); LYMPHOCYTE % (Manual) 9 % (20.0-40.0); MONOCYTE % (Manual) 6 % (2.0-10.0); NEUTROPHIL % (Manual) 57 % (54.0-75.0); PLATELET ESTIMATE DECREASED
[2016-12-13 07:30] LABS: WHITE BLOOD COUNT 9.5 X 10^3uL (3.9-10.7)
[2016-12-13] MEDS: INSULIN LISPRO 100 UNIT/ML ML SUBCUT SCH ×4 (07:30→21:07)
[2016-12-13] MEDS: VANCOMYCIN HCL 1,000 MG in NORMAL SALINE ADDVANTAGE 250 ML IV SCH ×2 (08:02→22:00)
[2016-12-13] MEDS: CYANOCOBALAMIN 1,000 MCG TABLET PO SCH (08:03)
[2016-12-13] MEDS: CHOLECALCIFEROL 1,000 UNIT CAPSULE PO SCH (08:03)
[2016-12-13] MEDS: metFORMIN 500 MG TABLET PO SCH ×2 (08:03→20:01)
[2016-12-13] MEDS: HYDROcodone/APAP 5/325 MG 1 TAB TABLET PO PRN ×3 (08:03→21:21)
[2016-12-13] MEDS: GABAPENTIN 300 MG CAPSULE PO SCH ×3 (08:03→20:01)
[2016-12-13] MEDS: FLUOXETINE HCL 20 MG CAPSULE PO SCH (08:03)
[2016-12-13] MEDS: CYCLOBENZAPRINE HCL 10 MG TABLET PO PRN ×2 (08:08→20:02)
[2016-12-13] MEDS: [UNRECOGNIZED DRUG - REMARK] PO SCH (09:42)
[2016-12-13] MEDS: [UNRECOGNIZED DRUG - REMARK] PO SCH (09:42)
--- NOTE | 2016-12-13 11:54 | PROGRESS NOTE: IM APSO ---
Assessment and Plan - Date of Encounter Date of Encounter: 12/13/16 (1) Sepsis Status: Acute Assessment and plan: on Vanco, culture P, but suspected strep A, throat swab pos and she was exposed last week. VSS, labs stable, pt looks much improved in terms of the cellulitis. Plan another day on IV abx due to seriousness of presentation and switch to PO. Current Visit: Yes (2) Erysipelas Status: Acute Assessment and plan: As above Current Visit: Yes (3) Diabetes mellitus Status: Chronic Assessment and plan: On routine medications, doing well. Current Visit: Yes (4) Cirrhosis of liver Status: Chronic Current Visit: Yes - Time Spent With Patient Total time spent with greater than 50% in coordination of care (as documented) at patient's floor/unit and/or counseling patient: Estimated anticipated discharge: tomorrow IM: PN Subjective General: pain (scalp, improved) Respiratory: no cough, no SOB Integumentary: rashes IM: PN Objective Exam - I&O/Vital Signs I&O: Intake & Output 12/12/16 12/13/16 12/13/16 21:59 05:59 13:59 Intake Total 2695 1045 Output Total 700 400 Balance 1994 64 Weight 91.5 kg Intake: IV 1475 925 Left Antecubital 1475 925 Oral 1220 120 Output: Urine 700 400 Other: Urine Appearance Clear Clear Urine Color Straw Yellow Stool Size Moderate Stool Characteristics Brown Voiding Method Toilet Toilet # Voids 1 # Bowel Movements 1 Vital Signs: Last Vital Signs Temp 37.6 C 12/13/16 11:00 Pulse 97 H 12/13/16 11:00 Resp 16 12/13/16 11:00 BP 93/68 12/13/16 11:00 Pulse Ox 94 12/13/16 11:00 Oxygen Flow Rate 2 Oxygen Delivery Method Nasal Cannula - Constitutional General appearance: Present: obese - Eye Eye exam: Present: periorbital swelling (trivial) - ENT ENT exam: Present: mucous membranes moist - Neck Neck exam: Absent: lymphadenopathy - Respiratory Respiratory exam: Present: rales - Cardiovascular Cardiovascular exam: Present: RRR - GI/Abdominal GI/Abdominal exam: Present: normal bowel sounds, soft - Extremities Exam Extremities exam: Absent: edema - Skin Skin exam: Present: erythema (eryth greatly reduced, R ear swollen but less eryth) - Lab Labs: Laboratory Last Values WBC 9.5 X 10^3uL (3.9-10.7) 12/13/16 06:10 RBC 4.42 X 10^6uL (4.20-6.10) 12/13/16 06:10 Hgb 12.4 g/dL (12.0-16.0) 12/13/16 06:10 Hct 38.3 % (36.0-48.0) 12/13/16 06:10 MCV 86.7 fL (80.0-100.0) 12/13/16 06:10 MCH 28.0 pg (29.0-35.0) L 12/13/16 06:10 MCHC 32.3 g/dL (32.0-36.0) 12/13/16 06:10 RDW 12.9 % (11.5-14.5) 12/13/16 06:10 Plt Count 81 X 10^3uL (130-440) L 12/13/16 06:10 MPV 8.7 fL (7.4-10.4) 12/13/16 06:10 Total Counted 100 12/13/16 06:10 Neutrophils % Cancelled 12/12/16 06:45 Neutrophils % (Manual) 57 % (54.0-75.0) 12/13/16 06:10 Band Neuts % (Manual) 24 % (0.0-1.0) H 12/13/16 06:10 Lymphocytes % Cancelled 12/12/16 06:45 Lymphocytes % (Manual) 9 % (20.0-40.0) L 12/13/16 06:10 Monocytes % (Manual) 6 % (2.0-10.0) 12/13/16 06:10 Eosinophils % Cancelled 12/12/16 06:45 Eosinophils % (Manual) 4 % (0.0-6.0) 12/13/16 06:10 Basophils % Cancelled 12/12/16 06:45 Neutrophils # Cancelled 12/12/16 06:45 Lymphocytes # Cancelled 12/12/16 06:45 Monocytes Cancelled 12/12/16 06:45 Monocytes # Cancelled 12/12/16 06:45 Eosinophils # Cancelled 12/12/16 06:45 Basophils # Cancelled 12/12/16 06:45 Toxic Granulation Present 12/12/16 06:45 Platelet Estimate Decreased 12/13/16 06:10 Sodium 142 mmol/L (137-145) D 12/13/16 06:10 Potassium 3.8 mmol/L (3.5-5.1) 12/13/16 06:10 Chloride 109 mmol/L (98-107) H 12/13/16 06:10 Carbon Dioxide 23 mmol/L (22-30) 12/13/16 06:10 BUN 9 mg/dL (7-17) 12/13/16 06:10 Creatinine 0.6 mg/dL (0.5-1.0) 12/13/16 06:10 GFR Calculation > 60 mL/min 12/13/16 06:10 Glucose 67 mg/dL (70-100) L 12/13/16 06:10 Lactic Acid 4.0 mmol/L (0.7-2.1) H* 12/12/16 06:45 Calcium 8.4 mg/dL (8.4-10.2) 12/13/16 06:10 Total Bilirubin 2.8 mg/dL (0.2-1.3) H 12/13/16 06:10 Direct Bilirubin 1.2 mg/dL (0.0-0.4) H 12/13/16 06:10 AST 47 U/L (14-36) H 12/13/16 06:10 ALT 51 U/L (9-52) 12/13/16 06:10 Alkaline Phosphatase 59 U/L (38-126) 12/13/16 06:10 Total Protein 5.8 g/dL (6.3-8.2) L 12/13/16 06:10 Albumin 2.7 g/dL (3.5-5.0) L 12/13/16 06:10 Lipase 48 U/L (23-300) 12/12/16 06:45 Urine Color Yellow 12/12/16 06:45 Urine Appearance Clear 12/12/16 06:45 Urine pH 5.5 (5-7) 12/12/16 06:45 Ur Specific [place] < or = 1.005 (0.001-1.035) 12/12/16 06:45 Urine Protein Negative (NEG - TRACE) 12/12/16 06:45 Urine Ketones Negative (NEGATIVE) 12/12/16 06:45 Urine Blood Trace (NEGATIVE) A 12/12/16 06:45 Urine Nitrate Negative (NEGATIVE) 12/12/16 06:45 Urine Bilirubin Negative (NEGATIVE) 12/12/16 06:45 Urine Urobilinogen Normal (NEG-1mg/dL) 12/12/16 06:45 Ur Leukocyte Esterase Trace (NEGATIVE) 12/12/16 06:45 Urine RBC 0-5/hpf (0-5/hpf) 12/12/16 06:45 Urine WBC 0-4/hpf (0-4/hpf) 12/12/16 06:45 Ur Squamous Epith Cells 0-5/hpf (<= 15/hpf) 12/12/16 06:45 Urine Bacteria None seen (<10/hpf) 12/12/16 06:45 Urine Mucus None seen (Up to 25%) 12/12/16 06:45 Urine Glucose Normal (NEGATIVE) 12/12/16 06:45 Quality Questions - VTE Prophylaxis Assessment VTE Present on Admission?: No Patient at risk for venous thromboembolism?: Yes VTE Risk Level: Moderate Risk Pharmaceutical VTE prophylaxis contraindication reason: not indicated Mechanical VTE prophylaxis contraindication reason: N/A- VTE prophylaxsis ordered (1) Sepsis Qualifiers: Sepsis type: Streptococcus group A Qualified Code(s): A40.0 - Sepsis due to streptococcus, group A (3) Diabetes mellitus Qualifiers: Diabetes mellitus type: type 2
[2016-12-14] MEDS: LEVOTHYROXINE 25 MCG TABLET PO SCH (05:56)
[2016-12-14] MEDS: PANTOPRAZOLE 40 MG TABLET PO SCH (05:56)
[2016-12-14] MEDS: INSULIN LISPRO 100 UNIT/ML ML SUBCUT SCH ×2 (07:38→11:20)
[2016-12-14] MEDS: CHOLECALCIFEROL 1,000 UNIT CAPSULE PO SCH (08:10)
[2016-12-14] MEDS: GABAPENTIN 300 MG CAPSULE PO SCH ×2 (08:10→11:33)
[2016-12-14] MEDS: CYANOCOBALAMIN 1,000 MCG TABLET PO SCH (08:10)
[2016-12-14] MEDS: metFORMIN 500 MG TABLET PO SCH (08:10)
[2016-12-14] MEDS: FLUOXETINE HCL 20 MG CAPSULE PO SCH (08:10)
[2016-12-14] MEDS ORDERED: NORMAL SALINE IV ONE (08:30)
[2016-12-14] MEDS ORDERED: PENICILLIN POTASSIUM IV ONE (08:30)
[2016-12-14] MEDS ORDERED: CLINDAMYCIN IV ONE (08:30)
[2016-12-14] MEDS ORDERED: DEXTROSE 5% IV ONE (08:30)
[2016-12-14] MEDS ORDERED: D5W IV ONE (08:30)
--- NOTE | 2016-12-14 08:34 | DC SUMMARY: IM Note ---
Discharge Summary: IM/Peds Provider: Date of Admission: 12/12/16 Admitting Provider: CHRIS BALLESTEROS MD Attending Provider: CHRIS BALLESTEROS MD Discharging Provider: CHRIS BALLESTEROS MD Primary Care Provider: Discharge Date: 12/14/16 - Diagnosis (1) Sepsis Status: Acute Qualifiers: Sepsis type: Streptococcus group A Qualified Code(s): A40.0 - Sepsis due to streptococcus, group A (2) Erysipelas Status: Acute (3) Diabetes mellitus Status: Chronic Qualifiers: Diabetes mellitus type: type 2 (4) Cirrhosis of liver Status: Chronic Hospital Course: Pt admitted with 11/02 pos blood cultures from the night previous to admit, known strep exposure and probably poorly controlled diabetes lately. She had two fevers documented early on, but her VS remained very stable. The impressive cellulitis blooming on her scalp and R ear steadily improved. Today at d/c she has sl increased mild eryth and edema under her eyes but she has not had a fever for over 24 hrs, labs never were very abnl, glc control is improved, I believe she will do well as outpt. Now we know this is definitely Strep A will give dose of PCN IV and Clinda IV prior to d/c and have her continue those abx PO as outpt with close f/u. HbA1c P, pt will bring glc record to outpt visit and we can adjust meds if necessary. - Time Spent with Patient Total time spent providing and/or coordinating discharge services: Time with patient DS: Less than 30 minutes Discharge - Patient/Caregiver Discharge Instructions Activity Level: Take it easy! You have been very ill. Diet: Diabetic diet. Do be careful; it appears your diabetes has not been well controlled and this has allowed the infection to be very severe. Eat carefully in small portions. If you have questions about your diet, do call our clinic and get a free appt with Leesa Duggan who is a diabetes expert. Additional Instructions: IF you have fever, chills, worsening rash, you MUST call clinic [facility] to get reassessed. At the latest we should meet up Tuesday, 8A is fine, I will get you an appt. If you have ANY worries before then, do call and ask for Madyson or Leesa who work with me and they will track me down. Do get the habit of eating live culture yogurt or taking a probiotic every day (available at any pharmacy or grocery) as these antibiotics are very hard on your colon. If you have severe diarrhea start up that is another reason to call to discuss plans, but hopefully you will not have this complication. Follow up: CHRIS BALLESTEROS MD [ACTIVE (Staff Physician)] - 3 Days Home Medications: Clindamycin HCl 600 mg PO TID #36 cap Penicillin V Potassium [Pen Vee K*] 500 mg PO QID #48 tab Disposition: HOME, SELF-CARE Discharge Summary Data - Medication History Medication History: Home Medications Anastrozole [Arimidex] 1 mg PO DAILY 12/12/16 Calcium Carbonate [Oyster Shell Calcium*] 500 mg PO BID 12/12/16 Cetirizine HCl [Zyrtec] 10 mg PO DAILY PRN 12/12/16 Cholecalciferol [Vitamin D*] 1,000 unit PO DAILY 12/12/16 Cyanocobalamin [VITAMIN B-12*] 1,000 mcg PO DAILY 12/12/16 Cyclobenzaprine HCl [Flexeril*] 10 mg PO TID PRN 12/12/16 Fluoxetine HCl 60 mg PO DAILY 12/12/16 Gabapentin 300 mg PO 0800,1200 12/12/16 Gabapentin 600 mg PO HS 12/12/16 Glimepiride [Amaryl] 4 mg PO DAILY 12/12/16 Hydrocodone/Acetaminophen [[place] 5-325 Tablet] 1 - 2 tab PO Q4H PRN 12/12/16 Hydroxyzine HCl 25 mg PO HS PRN 12/12/16 LORazepam [Lorazepam] 0.5 mg PO BID PRN 12/12/16 Levothyroxine Sodium 25 mcg PO BEFORE BREAKFAST 12/12/16 Omeprazole 20 mg PO BEFORE BREAKFAST 12/12/16 Simvastatin [Zocor] 40 mg PO HS 12/12/16 metFORMIN [Glucophage*] 1,000 mg PO BID 12/12/16 oxyCODONE/APAP 5/325 MG [Percocet 5/325*] 1 tab PO Q8H PRN 12/12/16 Clindamycin HCl 600 mg PO TID #36 cap 12/14/16 Insulin Lispro [Humalog*] 0 unit SUBCUT ACHS ml 12/14/16 Penicillin V Potassium [Pen Vee K*] 500 mg PO QID #48 tab 12/14/16 Inpatient Medications 12/12/16 09:05 Mag-Al Plus Xs Susp [Maalox Liquid] 30 ml PO Q4H PRN Polyethylene Glycol 3350 [miraLAX] 17 gm PO BID PRN Zolpidem Tartrate [Ambien] 5 mg PO HS PRN 12/12/16 09:10 Dextrose 50% Water [D50%] 50 gm IV PRN PRN 12/12/16 10:26 Cyclobenzaprine HCl [Flexeril] 10 mg PO TID PRN HYDROcodone/APAP 5/325 MG [[place]] 1 - 2 tab PO Q4H PRN LORazepam [Ativan] 0.5 mg PO BID PRN 12/12/16 10:30 Cholecalciferol [Vitamin D3] 1,000 unit PO DAILY Cyanocobalamin [Vitamin B12] 1,000 mcg PO DAILY Fluoxetine HCl [Prozac] 60 mg PO DAILY Glimepiride [Amaryl] 4 mg PO DAILY 12/12/16 11:00 metFORMIN [Glucophage] 1,000 mg PO BID 12/12/16 11:30 Insulin Lispro [HumaLOG] See Protocol SUBCUT ACHS 12/12/16 12:00 Gabapentin [Neurontin] 300 mg PO 0800,1200 12/12/16 13:09 Ibuprofen [Motrin] 600 mg PO Q6H PRN 12/12/16 14:00 Anastrozole [Arimidex] 1 mg PO DAILY 12/12/16 21:00 Gabapentin [Neurontin] 600 mg PO HS 12/13/16 06:30 Levothyroxine [Synthroid] 25 mcg PO BEFORE BREAKFAST Pantoprazole [Protonix] 40 mg PO BEFORE BREAKFAST 12/14/16 08:30 Clindamycin/D5w [Cleocin 900 mg] 915 mg Dextrose 5% Premix 50 ml [D5w 50 ml [ Premix]] 1 bag IV ONCE Penicillin G Potassium [Pfizerpen] 4 mmu Normal Saline [Sodium Chloride 0.9% 100 ml] 100 ml IV ONCE Procedures and tests throughout hospitalization: Completed Lab Orders 12/13/16 06:10 BASIC METABOLIC PANEL [CHEM] AMDRAW CBC W/ MANUAL DIFFERENTIAL [HEM] Routine HEPATIC PANEL [CHEM] AMDRAW 12/13/16 21:10 VANCOMYCIN TROUGH [CHEM] Routine Pending Orders 12/12/16 09:05 Admit: Inpatient Routine Activity: Ambulate with Assist TID Activity: Bathroom Privileges . Intake and Output QSHIFT I&O Resuscitation Status Routine Titrate Oxygen TITRATE B/W 88-92% Vital Signs ROUTINE VITALS (Q4H) Mag-Al Plus Xs Susp [Maalox Liquid] 30 ml PO Q4H PRN Polyethylene Glycol 3350 [miraLAX] 17 gm PO BID PRN Zolpidem Tartrate [Ambien] 5 mg PO HS PRN 12/12/16 09:10 Finger Stick Blood Sugar ACHS FINGER STICK Hypoglycemia treatment... PER PROTOCOL Dextrose 50% Water [D50%] 50 gm IV PRN PRN 12/12/16 10:26 Cyclobenzaprine HCl [Flexeril] 10 mg PO TID PRN HYDROcodone/APAP 5/325 MG [[place]] 1 - 2 tab PO Q4H PRN LORazepam [Ativan] 0.5 mg PO BID PRN 12/12/16 10:30 Cholecalciferol [Vitamin D3] 1,000 unit PO DAILY Cyanocobalamin [Vitamin B12] 1,000 mcg PO DAILY Fluoxetine HCl [Prozac] 60 mg PO DAILY Glimepiride [Amaryl] 4 mg PO DAILY 12/12/16 11:00 metFORMIN [Glucophage] 1,000 mg PO BID 12/12/16 11:30 Insulin Lispro [HumaLOG] See Protocol SUBCUT ACHS 12/12/16 12:00 Gabapentin [Neurontin] 300 mg PO 0800,1200 12/12/16 13:09 Ibuprofen [Motrin] 600 mg PO Q6H PRN 12/12/16 14:00 Anastrozole [Arimidex] 1 mg PO DAILY 12/12/16 21:00 Gabapentin [Neurontin] 600 mg PO HS 12/12/16 Lunch Diabetic [DIET] 12/13/16 06:30 Levothyroxine [Synthroid] 25 mcg PO BEFORE BREAKFAST Pantoprazole [Protonix] 40 mg PO BEFORE BREAKFAST 12/13/16 11:54 SASHA Hose . 12/13/16 21:10 Hemoglobin A1c [GLYCOSYLATED HGB] [CHEM] Routine 12/14/16 08:30 Clindamycin/D5w [Cleocin 900 mg] 915 mg Dextrose 5% Premix 50 ml [D5w 50 ml [ Premix]] 1 bag IV ONCE Penicillin G Potassium [Pfizerpen] 4 mmu Normal Saline [Sodium Chloride 0.9% 100 ml] 100 ml IV ONCE 12/14/16 12:00 Discharge ONCE Labs on day of discharge: Labs from last 24 hours 12/13/16 12/13/16 21:10 21:10 Hemoglobin A1c Pending Vancomycin Trough 8.1 IM: Discharge Physical Exam - I&O/Vital Signs I&O: Intake & Output 12/13/16 12/14/16 12/14/16 21:59 05:59 13:59 Intake Total 1320 1100 Output Total 575 750 Balance 745 350 Intake: IV 300 Left Antecubital 300 Oral 1320 800 Output: Urine 575 750 Other: Urine Appearance Clear Urine Color Straw Voiding Method Toilet Toilet Vital Signs: Last Vital Signs Temp 36.8 C 12/14/16 07:00 Pulse 90 12/14/16 07:00 Resp 20 12/14/16 07:00 BP 134/83 12/14/16 07:00 Pulse Ox 90 12/14/16 07:00 Oxygen Flow Rate 5 Oxygen Delivery Method Nasal Cannula - Constitutional General appearance: Present: obese - Eye Eye exam: Present: periorbital swelling (a little worse under the eyes, but she just woke up, CPAP all night, may have made this more pronounced.) - ENT ENT exam: Present: mucous membranes moist - Neck Neck exam: Absent: lymphadenopathy - Respiratory Respiratory exam: Present: clear - Cardiovascular Cardiovascular exam: Present: RRR - GI/Abdominal GI/Abdominal exam: Present: normal bowel sounds, soft - Extremities Exam Extremities exam: Absent: edema - Skin Skin exam: Present: erythema (No eryth scalp, c/o some discomfort upper back, but no rash seen there. Ear improved further.)
[2016-12-14] MEDS: [UNRECOGNIZED DRUG - REMARK] PO SCH (08:46)
[2016-12-14] MEDS: [UNRECOGNIZED DRUG - REMARK] PO SCH (08:46)
[2016-12-14] MEDS ORDERED: CLINDAMYCIN/D5W 50 ML IV SCH (09:45)
[2016-12-14] MEDS ORDERED: PENICILLIN POTASSIUM IV SCH (10:45)
[2016-12-14] MEDS ORDERED: NORMAL SALINE MINI IV SCH (10:45)
[2016-12-14 11:16] VITALS: BP 140/95; PULSE 101; RESP 20; TEMP 98.9; O2SAT 93
== END 2016-12-14 11:44 | disposition home or self-care (01) | DRG 603 ==
LOC: ER 06:15 → IN 09:03 → OBSVTOIN 09:03
PROVIDERS: ADMIT Family Medicine; ATTEND Family Medicine
DX: A46 Erysipelas (principal); L03.811 Cellulitis of head [any part, except face]; B95.4 Other streptococcus as the cause of diseases classified elsewhere; E86.0 Dehydration; E11.9 Type 2 diabetes mellitus without complications; I10 Essential (primary) hypertension; E78.5 Hyperlipidemia, unspecified; Z85.3 Personal history of malignant neoplasm of breast; K74.69 Other cirrhosis of liver; Z79.899 Other long term (current) drug therapy
CPT/HCPCS: 36415; 80048; 80076; 80202; 81001; 83036; 83605; 83690; 85007; 85027; 87086; 87880; 96365; 96366; 96375; 99285; J1815; J1885; J3370; J7030; J7040